=== PATIENT | male | born 1950 | race Caucasian/White ===

== ENCOUNTER 2022-11-09 15:10 | Day surgery (SDC) | payer MEDICARE ==
[~2022-11-09] VITALS: Ht 182.9 cm; Wt 91.6 kg
[2022-11-09] VITALS (14 sets, daily range): BP systolic 127–156; BP diastolic 80–103
[2022-11-09] MEDS ORDERED: fentaNYL/PF 50MCG/1 ML 2ML syringe IV ONE (15:35)
[2022-11-09] MEDS ORDERED: normal saline 1000ml 1,000 ML IV SCH (15:35)
[2022-11-09] MEDS ORDERED: MIDAZolam 1mg/ml 10ml vial IV ONE (15:35)
[2022-11-09] MEDS ORDERED: glycopyrrolate 0.2mg/ml inj IV ONE (15:35)
[2022-11-09] MEDS ORDERED: CELE-85 PO (15:48)
[2022-11-09] MEDS ORDERED: TRAM50TA2 PO (15:48)
[2022-11-09] MEDS ORDERED: PENT400T17 PO (15:48)
[2022-11-09] MEDS ORDERED: HYDR-3964 PO (15:48)
[2022-11-09] MEDS ORDERED: AMLO2.5T5 PO (15:48)
[2022-11-09] MEDS ORDERED: MSC30T PO (15:48)
[2022-11-09] MEDS ORDERED: APIX5TAB3 PO (15:55)
[2022-11-09] MEDS ORDERED: ASCO500C17 PO (15:55)
[2022-11-09] MEDS ORDERED: MULT-1085 PO (15:55)
[2022-11-09] MEDS ORDERED: CYAN50009 PO (15:55)
[2022-11-09] MEDS ORDERED: flecainide 50mg tablet PO ONE (18:15)
== END 2022-11-09 19:20 | disposition home or self-care (01) ==
LOC: SSTAY O 15:10
PROVIDERS: ATTEND Internal Medicine Cardiovascular Disease
DX: I48.91 Unspecified atrial fibrillation (principal); I08.1 Rheumatic disorders of both mitral and tricuspid valves; I10 Essential (primary) hypertension; M19.90 Unspecified osteoarthritis, unspecified site; Z79.899 Other long term (current) drug therapy; Z85.038 Personal history of other malignant neoplasm of large intestine; Z98.890 Other specified postprocedural states; Z87.891 Personal history of nicotine dependence; F12.90 Cannabis use, unspecified, uncomplicated; Z88.8 Allergy status to other drugs, medicaments and biological substances; Z79.01 Long term (current) use of anticoagulants; Z82.49 Family history of ischemic heart disease and other diseases of the circulatory system; Z80.0 Family history of malignant neoplasm of digestive organs
CPT/HCPCS: 92960; 93005; 93312; 93325; 94760; J2250; J3010; J3490; J7030; A4620

== ENCOUNTER 2023-01-20 09:20 | Day surgery (SDC) | payer MEDICARE ==
[2023-01-20] VITALS (10 sets, daily range): BP systolic 133–180; BP diastolic 77–106
[~2023-01-20] VITALS: Ht 182.9 cm; Wt 97.6 kg
[~2023-01-20 09:20] MED LIST: AMLO2.5T5 PO; APIX5TAB3 PO; ASCO500C17 PO; CELE-85 PO; CYAN50009 PO; HYDR-3964 PO; MSC30T PO; MULT-1085 PO; PENT400T17 PO; TRAM50TA2 PO
[2023-01-20] MEDS ORDERED: FLEC100T PO (09:50)
[2023-01-20] MEDS ORDERED: normal saline 1000ml 1,000 ML IV SCH (10:00)
[2023-01-20] MEDS ORDERED: MIDAZolam 1mg/ml 10ml vial IV ONE (10:00)
[2023-01-20 10:49] LABS: BASOPHILS % (AUTO) 0.7 % (0-1); EOSINOPHILS % (AUTO) 0.5 % (0-6); HEMATOCRIT 40.1 % (42.0-52.0); HEMOGLOBIN 13.4 g/dl (14.0-17.9); LYMPHOCYTES # (AUTO) 0.6 X10'3 (1.1-4.8); LYMPHOCYTES % (AUTO) 9.6 % (21-51); MEAN CORPUSCULAR HEMOGLOBIN 31.1 PG (27.0-31.0); MEAN CORPUSCULAR HGB CONC 33.5 g/dL (33.0-36.5); MEAN CORPUSCULAR VOLUME 92.8 FL (78-98); MEAN PLATELET VOLUME 6.6 FL (7.4-10.4); MONOCYTES # (AUTO) 0.4 X10'3 (0-0.9); MONOCYTES % (AUTO) 6.4 % (2-12); NEUTROPHILS % (AUTO) 82.8 % (42-75); PLATELET COUNT 229 X10'3 (140-440); RED BLOOD COUNT 4.32 X10'6 (4.70-6.10); RED CELL DISTRIBUTION WIDTH 15.7 % (11.5-14.5); WHITE BLOOD COUNT 6.1 X10'3 (4.5-11.0)
[2023-01-20 11:04] LABS: ALBUMIN 3.5 G/DL (3.4-5.0); ANION GAP 5 (8-16); BLOOD UREA NITROGEN 17 MG/DL (7-18); BUN/CREATININE RATIO 21.8 (10.0-20.0); CHLORIDE 106 MMOL/L (99-107); CREATININE 0.78 MG/DL (0.60-1.10); GLUCOSE 98 MG/DL (70-104); MAGNESIUM 2.2 MG/DL (1.5-2.4); POTASSIUM 4.1 MMOL/L (3.5-5.1); SODIUM 139 MMOL/L (135-145); TOTAL CARBON DIOXIDE 27.6 MMOL/L (24-32); eGFR > 90 ML/MIN
[2023-01-20 11:06] LABS: APTT 31 SECONDS (22-32)
[2023-01-20] MEDS ORDERED: fentaNYL/PF 50MCG/1 ML 2ML syringe IV ONE (11:10)
== END 2023-01-20 16:25 | disposition home or self-care (01) ==
LOC: SSTAY O 09:20
PROVIDERS: ATTEND Internal Medicine Cardiovascular Disease
DX: I48.91 Unspecified atrial fibrillation (principal); I10 Essential (primary) hypertension; M19.90 Unspecified osteoarthritis, unspecified site; Z85.038 Personal history of other malignant neoplasm of large intestine; Z98.890 Other specified postprocedural states; Z79.01 Long term (current) use of anticoagulants; Z79.899 Other long term (current) drug therapy; F12.90 Cannabis use, unspecified, uncomplicated; Z87.891 Personal history of nicotine dependence; Z88.8 Allergy status to other drugs, medicaments and biological substances; Z82.49 Family history of ischemic heart disease and other diseases of the circulatory system; Z80.0 Family history of malignant neoplasm of digestive organs
CPT/HCPCS: 36415; 80048; 83735; 85025; 85610; 85730; 92960; 93005; J2250; J3010; J7030; A4620

== ENCOUNTER 2023-05-05 09:34 | Day surgery (SDC) | payer MEDICARE ==
[2023-05-05] VITALS (10 sets, daily range): BP systolic 119–156; BP diastolic 80–99; PULSE 66–97; RESP 13–22; TEMP 98.7; O2SAT 95–97
[~2023-05-05] VITALS: Ht 182.9 cm; Wt 96.5 kg
[~2023-05-05 09:34] MED LIST changes: +CELE-127 PO; -CELE-85 PO; +FLEC100T PO
[2023-05-05] MEDS ORDERED: MIDAZolam 1mg/ml 10ml vial IV ONE (10:05)
[2023-05-05] MEDS ORDERED: fentaNYL/PF 50MCG/1 ML 2ML syringe IV ONE (10:05)
[2023-05-05] MEDS ORDERED: normal saline 1000ml 1,000 ML IV SCH (10:05)
[2023-05-05] MEDS ORDERED: LACT10SO7 PO (10:07)
[2023-05-05] MEDS ORDERED: LOSA50TA64 PO (10:07)
[2023-05-05] MEDS ORDERED: DOCU-148 PO (10:07)
[2023-05-05] MEDS ORDERED: MAGN250T11 PO (10:07)
[2023-05-05] MEDS ORDERED: PROP150T2 PO (10:07)
[2023-05-05] MEDS ORDERED: MORP15TA PO (10:07)
[2023-05-05] MEDS ORDERED: VITE1000C PO (10:07)
[2023-05-05 10:15] LABS: BASOPHILS # (AUTO) 0.1 X10'3 (0-0.2); EOSINOPHILS # (AUTO) 0.1 X10'3 (0-0.9); EOSINOPHILS % (AUTO) 0.8 % (0-6); HEMATOCRIT 48.3 % (42.0-52.0); HEMOGLOBIN 16.5 g/dl (14.0-17.9); LYMPHOCYTES # (AUTO) 0.6 X10'3 (1.1-4.8); LYMPHOCYTES % (AUTO) 8.5 % (21-51); MEAN CORPUSCULAR HEMOGLOBIN 31.1 PG (27.0-31.0); MEAN CORPUSCULAR HGB CONC 34.1 g/dL (33.0-36.5); MEAN PLATELET VOLUME 6.5 FL (7.4-10.4); MONOCYTES # (AUTO) 0.5 X10'3 (0-0.9); MONOCYTES % (AUTO) 7.4 % (2-12); NEUTROPHILS % (AUTO) 82.3 % (42-75); PLATELET COUNT 231 X10'3 (140-440); RED BLOOD COUNT 5.31 X10'6 (4.70-6.10); RED CELL DISTRIBUTION WIDTH 15.6 % (11.5-14.5); WHITE BLOOD COUNT 7.3 X10'3 (4.5-11.0)
[2023-05-05 10:33] LABS: PROTHROMBIN TIME 11.2 SECONDS (9.0-12.0)
[2023-05-05 10:37] LABS: ALBUMIN 3.7 G/DL (3.4-5.0); ANION GAP 10 (8-16); BLOOD UREA NITROGEN 15 MG/DL (7-18); CALCIUM 9.3 MG/DL (8.5-10.1); CHLORIDE 103 MMOL/L (99-107); CREATININE 0.94 MG/DL (0.60-1.10); GLUCOSE 104 MG/DL (70-104); MAGNESIUM 2.3 MG/DL (1.5-2.4); POTASSIUM 4.2 MMOL/L (3.5-5.1); SODIUM 138 MMOL/L (135-145); TOTAL CARBON DIOXIDE 25.5 MMOL/L (24-32); eCRCL 76 ML/MIN; eGFR 78 ML/MIN
== END 2023-05-05 12:30 | disposition home or self-care (01) ==
LOC: SSTAY O 09:34
PROVIDERS: ATTEND Internal Medicine Cardiovascular Disease
DX: I48.91 Unspecified atrial fibrillation (principal); I10 Essential (primary) hypertension; M19.90 Unspecified osteoarthritis, unspecified site; Z85.038 Personal history of other malignant neoplasm of large intestine; Z87.891 Personal history of nicotine dependence; F12.90 Cannabis use, unspecified, uncomplicated; Z98.890 Other specified postprocedural states; Z88.8 Allergy status to other drugs, medicaments and biological substances; Z79.899 Other long term (current) drug therapy; Z80.0 Family history of malignant neoplasm of digestive organs; Z82.49 Family history of ischemic heart disease and other diseases of the circulatory system
CPT/HCPCS: 36415; 80048; 83735; 85025; 85610; 92960; 93005; J2250; J3010; J7030; A4620

== ENCOUNTER 2023-06-16 08:17 | Day surgery (SDC) | payer MEDICARE ==
[~2023-06-16] VITALS: Ht 182.9 cm; Wt 97.9 kg
[2023-06-16] VITALS (7 sets, daily range): BP systolic 129–155; BP diastolic 79–88; PULSE 64–76; RESP 14–15; TEMP 98.2; O2SAT 94
[~2023-06-16 08:17] MED LIST changes: -AMLO2.5T5 PO; +DOCU-148 PO; -FLEC100T PO; +LACT10SO7 PO; +LOSA50TA64 PO; +MAGN250T11 PO; +MORP15TA PO; -MSC30T PO; +PROP150T2 PO; -TRAM50TA2 PO; +VITE1000C PO
[2023-06-16] MEDS ORDERED: RYT225T PO (08:41)
[2023-06-16] MEDS ORDERED: normal saline 1000ml 1,000 ML IV SCH (09:10)
[2023-06-16] MEDS ORDERED: fentaNYL/PF 50MCG/1 ML 2ML syringe IV ONE (09:10)
[2023-06-16] MEDS ORDERED: MIDAZolam 1mg/ml 10ml vial IV ONE (09:10)
[2023-06-16 09:14] LABS: BASOPHILS # (AUTO) 0.1 X10'3 (0-0.2); EOSINOPHILS # (AUTO) 0.1 X10'3 (0-0.9); EOSINOPHILS % (AUTO) 1.5 % (0-6); HEMATOCRIT 44.1 % (42.0-52.0); HEMOGLOBIN 14.9 g/dl (14.0-17.9); LYMPHOCYTES # (AUTO) 0.8 X10'3 (1.1-4.8); LYMPHOCYTES % (AUTO) 13.3 % (21-51); MEAN CORPUSCULAR HEMOGLOBIN 31.6 PG (27.0-31.0); MEAN CORPUSCULAR HGB CONC 33.9 g/dL (33.0-36.5); MEAN CORPUSCULAR VOLUME 93.4 FL (78-98); MEAN PLATELET VOLUME 6.3 FL (7.4-10.4); MONOCYTES # (AUTO) 0.4 X10'3 (0-0.9); MONOCYTES % (AUTO) 7.1 % (2-12); NEUTROPHILS # (AUTO) 4.6 X10'3 (1.8-7.7); NEUTROPHILS % (AUTO) 77.1 % (42-75); PLATELET COUNT 251 X10'3 (140-440); RED BLOOD COUNT 4.72 X10'6 (4.70-6.10); RED CELL DISTRIBUTION WIDTH 15.9 % (11.5-14.5)
[2023-06-16 09:24] LABS: ALBUMIN 3.3 G/DL (3.4-5.0); ANION GAP 7 (8-16); BLOOD UREA NITROGEN 16 MG/DL (7-18); BUN/CREATININE RATIO 18.2 (10.0-20.0); CALCIUM 8.9 MG/DL (8.5-10.1); CHLORIDE 106 MMOL/L (99-107); CREATININE 0.88 MG/DL (0.60-1.10); GLUCOSE 100 MG/DL (70-104); MAGNESIUM 2.4 MG/DL (1.5-2.4); POTASSIUM 4.2 MMOL/L (3.5-5.1); SODIUM 138 MMOL/L (135-145); TOTAL CARBON DIOXIDE 24.9 MMOL/L (24-32); eCRCL 81 ML/MIN; eGFR 85 ML/MIN
[2023-06-16] MEDS ORDERED: amiodarone 50MG/ML inj IV ONE (10:02)
[2023-06-16] MEDS ORDERED: atropine 0.1mg/ml 10ml syringe ONE (10:02)
[2023-06-16] MEDS ORDERED: midazolam 1 mg/ML 2ml injection ONE (10:02)
[2023-06-16] MEDS ORDERED: fentaNYL/PF 50MCG/1 ML 2ML syringe ONE (10:02)
[2023-06-16] MEDS ORDERED: diphenhydrAMINE 50 mg/ml inj ONE (10:08)
[2023-06-16] MEDS ORDERED: proCHLORperazine 10 MG/2 ml inj ONE (10:08)
== END 2023-06-16 12:05 | disposition home or self-care (01) ==
LOC: SSTAY O 08:17
PROVIDERS: ATTEND Internal Medicine Cardiovascular Disease
DX: I48.91 Unspecified atrial fibrillation (principal); I44.4 Left anterior fascicular block; I25.2 Old myocardial infarction; I10 Essential (primary) hypertension; Z98.890 Other specified postprocedural states; Z79.899 Other long term (current) drug therapy; M19.90 Unspecified osteoarthritis, unspecified site
CPT/HCPCS: 36415; 80048; 83735; 85025; 92960; 93005; 99152; J0780; J1200; J2250; J3010; J7030; J0282; J0461